=== PATIENT | female | born 1960 | race African-American/Black ===

== ENCOUNTER 2017-05-05 00:52 | Observation (INO) | payer OTHER ==
[2017-05-05 01:25] VITALS: BMI 40.4
[2017-05-05] MEDS ORDERED: FAMOTIDINE 20 MG/50 ML IVPB 20 MG/50 ML MG IVPB ONE ×2 (01:37→02:02)
[2017-05-05] MEDS ORDERED: EPINEPHrine 1:1,000 0.3 MG/0.3 ML SYR IM ONE (01:37)
[2017-05-05] MEDS ORDERED: methylPREDNISolone NA SUCC 125 MG/2 ML VIAL IVPB ONE (01:37)
[2017-05-05] MEDS ORDERED: ALBUTEROL SO4 2.5/IPRATROPIUM 0.5 INH SOL 3 ML VIAL.NEB. NEB ONE ×2 (01:37→01:42)
--- NOTE | 2017-05-05 01:37 | PDOC ---
History of Present Illness - History of Present Illness Initial Comments: 05/05/17 01:48 The patient is a 57 year old female, with a significant past medical history of hypertension, diabetes, who presents to the emergency department with, left- sided tongue swelling. Patient states that she was laying down around 1 hr ago. when she noticed that she had trouble drinking. Upon further inspection she noticed that her tongue felt heavy and swollen on the left side. She denies recent fevers, chills, headache or dizziness. She denies recent nausea, vomit, diarrhea or constipation. She denies recent dysuria, frequency, urgency or hematuria. She denies recent chest pain or shortness of breath. Allergies: lactose intolerant Past surgical history: None reported. Social history: Nonsmoker. Denies EtOH use and recreational drug use. Primary Care Physician: Víctor Flaherty <Hedy Gee - Last Filed: 05/05/17 01:50> <Yenni Abbasi - Last Filed: 05/05/17 02:07> - General Stated Complaint: NUMBNESS,LT SIDE TONGUE Past History <Hdey Gee - Last Filed: 05/05/17 01:50> - Past Medical History Anemia: No Asthma: No Cancer: No Cardiac Disorders: No CVA: No COPD: No DVT: No Dementia: No Diabetes: Yes Dialysis: No GI Disorders: No Disorders: No HTN: Yes Hypercholesterolemia: Yes Kidney Stones: No Liver Disease: No Psychiatric Problems: No Seizures: No Thyroid Disease: No Lung CA: No - Suicide/Smoking/Psychosocial Hx Smoking History: Never smoked Information on smoking cessation initiated: No Hx Alcohol Use: No Drug/Substance Use Hx: No Substance Use Type: None <Yenni Abbasi - Last Filed: 05/05/17 02:07> - Past Medical History Allergies/Adverse Reactions: Allergies Allergy/AdvReac Type Severity Reaction Status Date / Time No Known Allergies Allergy Verified 05/05/17 01:34 Home Medications: Ambulatory Orders Atorvastatin Ca [Lipitor] 20 mg PO HS 05/05/17 Lisinopril [Zestril] 20 mg PO DAILY 05/05/17 Metformin HCl 500 mg PO BID 05/05/17 Review of Systems - Review of Systems Comments:: 05/05/17 01:49 CONSTITUTIONAL: Absent: fever, chills, diaphoresis, generalized weakness, malaise, loss of appetite HEENT: Present: enlarged left-side of tongue. Absent: rhinorrhea, nasal congestion, throat pain, throat swelling, difficulty swallowing, mouth swelling, ear pain, eye pain, visual changes CARDIOVASCULAR: Absent: chest pain, syncope, palpitations, irregular heart rate, lightheadedness , peripheral edema RESPIRATORY: Absent: cough, shortness of breath, dyspnea with exertion, orthopnea, wheezing, stridor, hemoptysis GASTROINTESTINAL: Absent: abdominal pain, abdominal distension, nausea, vomiting, diarrhea, constipation, melena, hematochezia GENITOURINARY: Absent: dysuria, frequency, urgency, hesitancy, hematuria, flank pain, genital pain MUSCULOSKELETAL: Absent: myalgia, arthralgia, joint swelling SKIN: Absent: rash, itching, pallor HEMATOLOGIC/IMMUNOLOGIC: Absent: easy bleeding, easy bruising, lymphadenopathy, frequent infections ENDOCRINE: Absent: unexplained weight gain, unexplained weight loss, heat intolerance, cold intolerance NEUROLOGIC: Absent: headache, focal weakness or paresthesias, dizziness, unsteady gait, seizure, mental status changes, bladder or bowel incontinence PSYCHIATRIC: Absent: anxiety, depression, suicidal or homicidal ideation, hallucinations. <Hedy Gee - Last Filed: 05/05/17 01:50> *Physical Exam - Vital Signs Last Vital Signs Temp Pulse Resp BP Pulse Ox 98.4 F 98 H 18 180/97 100 05/05/17 01:14 05/05/17 01:14 05/05/17 01:14 05/05/17 01:14 05/05/17 01:14 - Physical Exam Comments: 05/05/17 01:49 GENERAL: Well developed, well nourished. Awake and alert. No acute distress. HEENT: Normocephalic, atraumatic. PERRLA, EOMI. No conjunctival pallor. Sclera are non- icteric. Moist mucous membranes. Oropharynx is clear. NECK: Supple. Full ROM. No JVD. Carotid pulses 2+ and symmetric, without bruits. No thyromegaly. No lymphadenopathy. CARDIOVASCULAR: Regular rate and rhythm. No murmurs, rubs, or gallops. Distal pulses are 2+ and symmetric. PULMONARY: No evidence of respiratory distress. Lungs clear to auscultation bilaterally. No wheezing, rales or rhonchi. ABDOMINAL: Soft. Non-tender. Non-distended. No rebound or guarding. No organomegaly. Normoactive bowel sounds. MUSCULOSKELETAL Normal range of motion at all joints. No bony deformities or tenderness. No CVA tenderness. EXTREMITIES: No cyanosis. No clubbing. No edema. No calf tenderness. SKIN: Warm and dry. Normal capillary refill. No rashes. No jaundice. NEUROLOGICAL: Alert, awake, appropriate. No gross focal neuro deficits. PSYCHIATRIC: Cooperative. Good eye contact. Appropriate mood and affect. Intra-Oral exam: Enlarged left-sided tongue, no lip swelling at this time. No uvula deviation or swelling <Hedy Gee - Last Filed: 05/05/17 01:50> - Vital Signs Last Vital Signs Temp Pulse Resp BP Pulse Ox 98.4 F 98 H 18 180/97 100 05/05/17 01:14 05/05/17 01:14 05/05/17 01:14 05/05/17 01:14 05/05/17 01:14 <Yenni Abbasi - Last Filed: 05/05/17 02:07> ED Treatment Course - LABORATORY CBC & Chemistry Diagram: 05/05/17 02:00 05/05/17 02:00 <Yenni Abbasi - Last Filed: 05/05/17 02:07> Medical Decision Making - Medical Decision Making 05/05/17 02:04 57 yo female who started lisinopril 3 weeks ago presents with 1 hour of left tongue swelling -Intraoral exam is negative for uvular edema -no hives,no lip swelling -lungs cta b/l IMP drug reaction/allergy plan IV steroids,benadryl admission for airway watch <Yenni Abbasi - Last Filed: 05/05/17 02:07> *DC/Admit/Observation/Transfer - Attestations Scribe Attestion: 05/05/17 01:49 Documentation prepared by Hedy Gee, acting as medical imaging specialist for Yenni Abbasi MD. <Hedy Gee - Last Filed: 05/05/17 01:50> <Yenni Abbasi - Last Filed: 05/05/17 02:07> - Referrals Referrals: Víctor Flaherty MD [Primary Care Provider] - - Patient Instructions - Post Discharge Activity
[2017-05-05] MEDS ORDERED: methylPREDNISolone NA SUCC 125 MG/2 ML VIAL ONE (01:42)
[2017-05-05] MEDS ORDERED: EPINEPHrine/PF 1 MG/1 ML (1:1,000) AMPULE ONE (01:42)
[2017-05-05 02:04] LABS: BASOPHIL 0.7 % (0-2.0); MCH 26.2 pg (25.7-33.7); MCHC 32.3 g/dl (32.0-36.0); MEAN CELL VOLUME 81.1 fl (80-96); MEAN PLT VOLUME 8.3 fl (7.5-11.1); NEUTROPHILS 56.2 % (42.8-82.8); PLATELET COUNT 232 K/MM3 (134-434); RDW 15.2 % (11.6-15.6); WHITE BLOOD COUNT 4.7 K/mm3 (4.0-10.0)
[2017-05-05 02:24] LABS: INR 1.02 (0.82-1.09); PROTHROMBIN TIME (PATIENT) 11.5 SEC (9.98-11.88)
[2017-05-05 02:35] LABS: ALBUMIN 3.7 g/dl (3.4-5.0); ALK PHOS 58 U/L (45-117); ANION GAP 11 (8-16); BILIRUBIN,TOTAL 0.3 mg/dL (0.2-1.0); CALCIUM 9.2 mg/dL (8.5-10.1); CO2 25 mmol/L (21-32); CREATININE 0.7 mg/dL (0.55-1.02); GLUCOSE,RANDOM 128 mg/dL (74-106); SGOT/AST 15 U/L (15-37); SGPT/ALT 24 U/L (12-78); TOT PROT 7.6 g/dl (6.4-8.2)
[2017-05-05 03:29] LABS: URINE APPEARANCE CLEAR; URINE BILIRUBIN NEGATIVE (NEGATIVE); URINE BLOOD NEGATIVE (NEGATIVE); URINE COLOR COLORLESS; URINE GLUCOSE (UA) NEGATIVE (NEGATIVE); URINE KETONE NEGATIVE (NEGATIVE); URINE NITRITE NEGATIVE (NEGATIVE); URINE PROTEIN NEGATIVE (NEGATIVE); URINE UROBILINOGEN NEGATIVE mg/dL (0.2-1.0)
--- NOTE | 2017-05-05 03:33 | PDOC ---
*Physical Exam - Vital Signs Last Vital Signs Temp Pulse Resp BP Pulse Ox 98.4 F 98 H 18 180/97 100 05/05/17 01:14 05/05/17 01:14 05/05/17 01:14 05/05/17 01:14 05/05/17 01:14 ED Treatment Course - LABORATORY CBC & Chemistry Diagram: 05/05/17 02:00 05/05/17 02:00 - ADDITIONAL ORDERS Additional order review: Laboratory Results 05/05/17 05/05/17 02:00 02:00 PT with INR 11.50 INR 1.02 Sodium 140 Potassium 3.9 Chloride 104 Carbon Dioxide 25 Anion Gap 11 BUN 11 Creatinine 0.7 Creat Clearance w eGFR > 60 Random Glucose 128 H Calcium 9.2 Total Bilirubin 0.3 AST 15 ALT 24 Alkaline Phosphatase 58 Total Protein 7.6 Albumin 3.7 05/05/17 02:00 RBC 4.67 MCV 81.1 MCHC 32.3 RDW 15.2 MPV 8.3 Neutrophils % 56.2 Lymphocytes % 23.8 Monocytes % 16.3 H Eosinophils % 3.0 Basophils % 0.7 - Medications Given in the ED: ED Medications Discontinued Medications Generic Name Dose Route Start Last Admin Trade Name Freq PRN Reason Stop Dose Admin Albuterol/Ipratropium 1 amp 05/05/17 01:37 05/05/17 02:00 Duoneb - NEB 05/05/17 01:38 1 amp ONCE ONE Administration Diphenhydramine HCl 50 mg 05/05/17 01:37 05/05/17 02:00 Benadryl Injection - IVPB 05/05/17 01:38 50 mg ONCE ONE Administration Epinephrine HCl 0.3 mg 05/05/17 01:37 05/05/17 02:07 Epipen 0.3mg - IM 05/05/17 01:38 0.3 mg ONCE ONE Administration Famotidine/Sodium Chloride 20 mg in 50 mls @ 100 mls/hr 05/05/17 01:37 02:01 Pepcid 20 Mg Premixed Ivpb - IVPB 05/05/17 02:06 100 mls/hr ONCE ONE Administration Methylprednisolone Sodium Succinate 125 mg 05/05/17 01:37 05/05/17 02:00 Solu-Medrol - IVPB 05/05/17 01:38 125 mg ONCE ONE Administration *DC/Admit/Observation/Transfer Diagnosis at time of Disposition: Allergic reaction caused by a drug Qualifiers: Encounter type: initial encounter Qualified Code(s): T78.40XA - Allergy, unspecified, initial encounter - Discharge Dispostion Condition at time of disposition: Stable Admit: Yes - Referrals Referrals: Víctor Flaherty MD [Primary Care Provider] - - Patient Instructions - Post Discharge Activity
--- NOTE | 2017-05-05 04:40 | HP ---
CHIEF COMPLAINT: tongue swelling PCP: Reynold HISTORY OF PRESENT ILLNESS: This is a 57 year old female with a past medical history significant for HTN started on lisinopril 3 weeks ago who presented to the ED with left sided tongue swelling x 1.5h. Pt denies difficulty swallowing or trouble breathing. Denies chest pain, palpitations, abdominal pain, N/V/D. ER course was notable for: (1) given epi, benadryl, solumedrol, famotidine, albuterol Recent Travel: pt denies PAST MEDICAL HISTORY: HTN, DM, asthma PAST SURGICAL HISTORY: pt denies Social History: Smoking: pt denies Alcohol: pt denies Drugs: pt denies Family History: mother age 41, murdered father age 83, CVA, HTN, DM, PPM, prostate CA no siblings one son, no medical problems Allergies No Known Allergies Allergy (Verified 05/05/17 01:34) HOME MEDICATIONS: 3 Medication Instructions Recorded Atorvastatin Ca [Lipitor] 20 mg PO HS 05/05/17 Lisinopril [Zestril] 20 mg PO DAILY 05/05/17 Metformin HCl 500 mg PO BID 05/05/17 REVIEW OF SYSTEMS CONSTITUTIONAL: Absent: fever, chills, diaphoresis, generalized weakness, malaise, loss of appetite, weight change HEENT: Present: tongue swelling Absent: rhinorrhea, nasal congestion, throat pain, throat swelling, difficulty swallowing, mouth swelling, ear pain, eye pain, visual changes CARDIOVASCULAR: Absent: chest pain, syncope, palpitations, irregular heart rate, lightheadedness , peripheral edema RESPIRATORY: Absent: cough, shortness of breath, dyspnea with exertion, orthopnea, wheezing, stridor, hemoptysis GASTROINTESTINAL: Absent: abdominal pain, abdominal distension, nausea, vomiting, diarrhea, constipation, melena, hematochezia GENITOURINARY: Absent: dysuria, frequency, urgency, hesitancy, hematuria, flank pain, genital pain MUSCULOSKELETAL: Absent: myalgia, arthralgia, joint swelling, back pain, neck pain SKIN: Absent: rash, itching, pallor HEMATOLOGIC/IMMUNOLOGIC: Absent: easy bleeding, easy bruising, lymphadenopathy, frequent infections ENDOCRINE: Absent: unexplained weight gain, unexplained weight loss, heat intolerance, cold intolerance NEUROLOGIC: Absent: headache, focal weakness or paresthesias, dizziness, unsteady gait, seizure, mental status changes, bladder or bowel incontinence PSYCHIATRIC: Absent: anxiety, depression, suicidal or homicidal ideation, hallucinations. PHYSICAL EXAMINATION Vital Signs - 24 hr 3 05/05/17 01:14 Temperature 98.4 F Pulse Rate 98 H Respiratory 18 Rate Blood Pressure 180/97 O2 Sat by Pulse 100 Oximetry (%) GENERAL: Awake, alert, and fully oriented, in no acute distress. HEAD: Normal with no signs of trauma. EYES: Pupils equal, round and reactive to light, extraocular movements intact, sclera anicteric, conjunctiva clear. No lid lag. EARS, NOSE, THROAT: Ears normal, nares patent, oropharynx clear without exudates. Moist mucous membranes. left half of tongue with swelling, no swelling of uvula NECK: Normal range of motion, supple without lymphadenopathy, JVD, or masses. LUNGS: Breath sounds equal, clear to auscultation bilaterally. No wheezes, and no crackles. No accessory muscle use. HEART: Regular rate and rhythm, normal S1 and S2 without murmur, rub or gallop. ABDOMEN: Obese, Soft, nontender, not distended, normoactive bowel sounds, no guarding, no rebound, no masses. No hepatomegaly or splenomegaly. MUSCULOSKELETAL: Normal range of motion at all joints. No bony deformities or tenderness. No CVA tenderness. UPPER EXTREMITIES: 2+ pulses, warm, well-perfused. No cyanosis. No clubbing. No peripheral edema. LOWER EXTREMITIES: 2+ pulses, warm, well-perfused. No calf tenderness. No peripheral edema. NEUROLOGICAL: Cranial nerves II-XII intact. Normal speech. Normal gait. PSYCHIATRIC: Cooperative. Good eye contact. Appropriate mood and affect. SKIN: Warm, dry, normal turgor, no rashes or lesions noted, normal capillary refill. Laboratory Results - last 24 hr 3 05/05/17 05/05/17 05/05/17 02:00 02:00 02:00 WBC 4.7 RBC 4.67 Hgb 12.2 Hct 37.9 MCV 81.1 MCH 26.2 MCHC 32.3 RDW 15.2 Plt Count 232 MPV 8.3 Neutrophils % 56.2 Lymphocytes % 23.8 Monocytes % 16.3 H Eosinophils % 3.0 Basophils % 0.7 PT with INR 11.50 INR 1.02 Sodium 140 Potassium 3.9 Chloride 104 Carbon Dioxide 25 Anion Gap 11 BUN 11 Creatinine 0.7 Creat Clearance w eGFR > 60 Random Glucose 128 H Calcium 9.2 Total Bilirubin 0.3 AST 15 ALT 24 Alkaline Phosphatase 58 Total Protein 7.6 Albumin 3.7 Urine Color Urine Appearance Urine pH Ur Specific [place] Urine Protein Urine Glucose (UA) Urine Ketones Urine Blood Urine Nitrite Urine Bilirubin Urine Urobilinogen 3 Urine Color Colorless 05/05/17 03:19 Urine Appearance Clear 05/05/17 03:19 Urine pH 5.0 (5.0-8.0) 05/05/17 03:19 Ur Specific [place] 1.001 (1.001-1.035) 05/05/17 03:19 Urine Protein Negative (NEGATIVE) 05/05/17 03:19 Urine Glucose (UA) Negative (NEGATIVE) 05/05/17 03:19 Urine Ketones Negative (NEGATIVE) 05/05/17 03:19 Urine Blood Negative (NEGATIVE) 05/05/17 03:19 Urine Nitrite Negative (NEGATIVE) 05/05/17 03:19 Urine Bilirubin Negative (NEGATIVE) 05/05/17 03:19 ECG NSR, vent rate 90, QTC 462 moderate voltage criteria for LVH no acute ST/T changes ASSESSMENT/PLAN: 57yF with PMH HTN, DM, asthma presented to ED with L sided tongue swelling. angioedema - likely due to SHADE-i - given benadryl, solumedrol, epinephrine and famotidine in ED - type and cross ordered in case pt needs FFP - monitor closely HTN - BP elevated upon arrival - will need alternate anti-HTN med, consider norvasc DM - hold metformin while inpatient - BGM AC/HS with novolog sliding scale asthma - albuterol neb prn, pt states she typically uses her inhaler less than once/ month DVT PPX - deferred as anticipated LOS <48h FEN - tolerating po fluids - BMP in am - low sodium/diabetic diet as tolerated Dispo: Pt currently requires further observation for management of her emergent condition. Visit type - Emergency Visit Emergency Visit: Yes ED Registration Date: 05/05/17 Care time: The patient presented to the Emergency Department on the above date and was hospitalized for further evaluation of their emergent condition. - New Patient This patient is new to me today: Yes Date on this admission: 05/05/17 - Critical Care Critical Care patient: No
--- NOTE | 2017-05-05 10:21 | EKG ---
Test Reason : Blood Pressure : / mmHG Vent. Rate : 090 BPM Atrial Rate : 090 BPM P-R Int : 146 ms QRS Dur : 078 ms QT Int : 378 ms P-R-T Axes : 036 -10 002 degrees QTc Int : 462 ms NORMAL SINUS RHYTHM MODERATE VOLTAGE CRITERIA FOR LVH, MAY BE NORMAL VARIANT BORDERLINE ECG NO PREVIOUS ECGS AVAILABLE Confirmed by CHAYA ESTRADA MD ([id number]) on 05/05/2017 10:20:45 AM Referred By: Confirmed By:CHAYA ESTRADA MD
[2017-05-05] MEDS ORDERED: amLODIPine BESYLATE 5 MG TABLET (FP) ONE (11:56)
[2017-05-05] MEDS: amLODIPine BESYLATE 5 MG TABLET (FP) PO SCH (11:58)
[2017-05-05 12:04] LABS: URINE LEUK ESTERASE Negative (NEGATIVE)
[2017-05-05] MEDS: INSULIN SLIDING SCALE (NOVOLOG) 1 VIAL SQ SCH ×2 (12:29→18:25)
[2017-05-05] MEDS ORDERED: INSULIN (NOVOLOG) ASPART 100 UNITS/ML 10ML VIAL ONE (12:39)
[2017-05-05] MEDS ORDERED: predniSONE 20 MG TABLET (UD) PO ONE (19:05)
--- NOTE | 2017-05-05 20:15 | CON.ENT ---
Consult Consult Specialty:: ENT Referred by:: Nereida Zarate NP Reason for Consultation:: angioedema - History of Present Illness Chief Complaint: tongue swelling History of Present Illness: 57 yo F with sudden onset tongue swelling, noted last night while at home, no trauma, no unusual foods noted tongue swelling speech "slurred:, saw tongue swelling in mriror and presented to ER. on arrival dx angioedema, rx Benadryl, epi, steroids. hx HTN, DM, asthma had SHADE inhibitor therapy - dc'd BP very elevated, admitted for further evaluation and management since treatment early this morning pt reports significant improvement, with resolution of tongue sweling she davis s been eating and drinking normally, full diet Bp remains elevated. no shortness of breathe,swallowing well. reports known history of allergies, had skin testing by MD at [facility], last visit 2 yrs ago - History Source History Provided By: Patient, Medical Record Limitations to Obtaining History: No Limitations - Past Medical History Cardio/Vascular: Yes: HTN Pulmonary: Yes: Asthma Endocrine: Yes: Diabetes Mellitus - Alcohol/Substance Use Hx Alcohol Use: No - Smoking History Smoking history: Never smoked Home Medications - Allergies Allergies/Adverse Reactions: Allergies Allergy/AdvReac Type Severity Reaction Status Date / Time SHADE Inhibitors Allergy Severe Swelling Verified 05/05/17 11:38 ARB-Angiotensin Receptor Allergy Severe Difficulty Verified 05/05/17 11:38 Antagonist Breathing - Home Medications Home Medications: Ambulatory Orders Amlodipine Besylate [Norvasc -] 5 mg PO DAILY #30 tablet 05/05/17 Atorvastatin Ca [Lipitor] 20 mg PO HS 05/05/17 Metformin HCl 500 mg PO BID 05/05/17 Physical Exam-ENT Vital Signs: Vital Signs Temperature 98.7 F 05/05/17 17:00 Pulse Rate 94 H 05/05/17 17:00 Respiratory Rate 18 05/05/17 17:00 Blood Pressure 150/90 05/05/17 17:00 O2 Sat by Pulse Oximetry (%) 96 05/05/17 13:20 Constitutional: Yes: No Distress, Calm, Obese Head: Yes: WNL Face: Yes: WNL Eyes: Yes: WNL Nose: Yes: WNL Nasal Passage: Yes: WNL Oral/Pharynx: Yes: WNL, Other (tongue normal, no swelling, symmetric, fully mobile, oropharyngeal airway normal, uvula no edema, floor of mouth: minimal focal edema left anterior around salivary duct papilla) Outer Ear: Yes: WNL Neck: Yes: WNL Respiratory: Yes: WNL Imaging - Results Chest X-ray: Report Reviewed (large heart) Problem List - Problems (1) Angioedema Assessment/Plan: acute angioedema involving tongue and oral cavity, essentiality resolved over day after ER treatment SHADE inhibitor suspected, discontinued pt continues to have elevated blood pressure, change of antihypertensive in progress. tolerating full diet, airway patent and WNL Recommend: full diet normal airway, ok to discharge home from ENT perspective But needs hypertension control prior to discharge as per Medicine/Hospitalists outpatient follow-up recommended Code(s): T78.3XXA - ANGIONEUROTIC EDEMA, INITIAL ENCOUNTER Qualifiers: Encounter type: initial encounter Qualified Code(s): T78.3XXA - Angioneurotic edema, initial encounter (2) Allergic rhinitis Assessment/Plan: incidental dx of allergic rhinitis numerous inhalant allergens outpatient follow-up recommended Thank you for consultation Shalom Wilkerson MD FACS Code(s): J30.9 - ALLERGIC RHINITIS, UNSPECIFIED Qualifiers: Chronicity: chronic Allergic rhinitis trigger: fungal spores Allergic rhinitis seasonality: unspecified seasonality Qualified Code(s): J30.89 - Other allergic rhinitis
[2017-05-05] MEDS ORDERED: diphenhydrAMINE HCL 25 MG CAPSULE (FP) PO SCH (22:00)
[2017-05-05] MEDS ORDERED: ATORVASTATIN CA 20 MG TABLET (FP) PO SCH (22:00)
[2017-05-05] MEDS ORDERED: INSULIN SLIDING SCALE (NOVOLOG) 1 VIAL SQ SCH (22:00)
[2017-05-06] MEDS: INSULIN SLIDING SCALE (NOVOLOG) 1 VIAL SQ SCH (06:46)
[2017-05-06 07:43] LABS: BASOPHIL 0.2 % (0-2.0); MEAN CELL VOLUME 81.3 fl (80-96); MEAN PLT VOLUME 8.3 fl (7.5-11.1); NEUTROPHILS 85.8 % (42.8-82.8); PLATELET COUNT 258 K/MM3 (134-434); RDW 15.1 % (11.6-15.6); WHITE BLOOD COUNT 10.3 K/mm3 (4.0-10.0)
[2017-05-06 07:52] LABS: ANION GAP 7 (8-16); CALCIUM 9.1 mg/dL (8.5-10.1); CO2 25 mmol/L (21-32); CREATININE 0.7 mg/dL (0.55-1.02); GLUCOSE,RANDOM 179 mg/dL (74-106); MAGNESIUM 2.2 mg/dL (1.8-2.4); PHOSPHOROUS 3.3 mg/dL (2.5-4.9)
[2017-05-06] MEDS ORDERED: INSULIN (NOVOLOG) ASPART 100 UNITS/ML 10ML VIAL ONE (08:02)
[2017-05-06] MEDS ORDERED: PT OWN MED DRAWER 7, Y5N ONE (08:02)
--- NOTE | 2017-05-06 08:39 | DS ---
Physical Exam: SUBJECTIVE: Patient seen and examined. She has no issues, she feels well, no difficulty or catching in her throat. ready to go home OBJECTIVE: Vital Signs Period Temp Pulse Resp BP Sys/Wiley Pulse Ox Last 24 Hr 97.9 F-98.7 F 87-98 18-20 141-150/85-97 96-99 PE Neuro: alert, awake, cn 2-12intact HEENT: no swelling, no swallowing issues Pulm: CTAB CV: s1 s2 rrr no mrg Abd: s nt nd + bs Ext: warm, no le edema Laboratory Results - last 24 hr 05/05/17 05/06/17 05/06/17 21:13 06:28 06:30 WBC 10.3 H D RBC 4.75 Hgb 12.4 Hct 38.6 MCV 81.3 MCH 26.0 MCHC 32.0 RDW 15.1 Plt Count 258 MPV 8.3 Neutrophils % 85.8 H D Lymphocytes % 8.0 D Monocytes % 6.0 Eosinophils % 0.0 D Basophils % 0.2 Sodium Potassium Chloride Carbon Dioxide Anion Gap BUN Creatinine POC Glucometer 137 163 Random Glucose Calcium Phosphorus Magnesium Blood Type 05/06/17 06:30 WBC RBC Hgb Hct MCV MCH MCHC RDW Plt Count MPV Neutrophils % Lymphocytes % Monocytes % Eosinophils % Basophils % Sodium 138 Potassium 4.4 Chloride 106 Carbon Dioxide 25 Anion Gap 7 L BUN 16 D Creatinine 0.7 POC Glucometer Random Glucose 179 H D Calcium 9.1 Phosphorus 3.3 Magnesium 2.2 Blood Type HOSPITAL COURSE: Date of Admission:05/05/17 Date of Discharge: 05/06/17 Minutes to complete discharge: 37 Discharge Summary Reason For Visit: ALLERGIC RXN,POSSIBLE AIRWAY COMPROMISE Current Active Problems Allergic reaction caused by a drug (Acute) Allergic rhinitis (Acute) Angioedema (Acute) Hospital Course: Initial Hospital Course: Briefly, this 57 year old female with a past medical history significant for HTN started on lisinopril 3 weeks ago presented to the ED with left sided tongue swelling x 1.5h. Subsequent Hospital Course/Progress Note/DC Summary: Plan: 1. Acute Angioedema - Due to ACI i - Stop and allergy noted in medical record - ENT eval with normal airway - Home w prednisone 40mg total 5 days - Epi pen PRN 2. HTN - Changed meds to norvac 5mg and HCTZ 12.5mg - PCP office follow up, pt aware and agrees 3. DM II - Metformin Dispo: - Home with above meds and plan - PT aware and agrees to above plan Condition: Stable - Instructions Diet, Activity, Other Instructions: Please return to the ED for any new, persistent, or worsening symptoms. Follow up with your PCP in 1 week for BP management Take new BP medications as directed Take 4 more days of prednisone daily Do not take any medications in the category of SHADE INHIBITORS or ARBs you have a severe allergy called angioedema. Keep this part of your medical record and tell your outpatient doctors. Referrals: Víctor Flaherty MD [Primary Care Provider] - Disposition: HOME - Home Medications Comprehensive Discharge Medication List: Ambulatory Orders Amlodipine Besylate [Norvasc -] 5 mg PO DAILY #30 tablet 05/05/17 Atorvastatin Ca [Lipitor] 20 mg PO HS 05/05/17 Metformin HCl 500 mg PO BID 05/05/17 Epinephrine (Epi-Pen 0.3MG) [Epipen 0.3MG -] 0.3 mg IM ASDIR #2 pens 05/06/17 Hydrochlorothiazide [Hctz -] 12.5 mg PO DAILY #30 cap 05/06/17 Prednisone [Deltasone -] 40 mg PO DAILY #8 tablet 05/06/17 This patient is new to me today: Yes Date on this admission: 05/06/17 Emergency Visit: Yes ED Registration Date: 05/05/17 Care time: The patient presented to the Emergency Department on the above date and was hospitalized for further evaluation of their emergent condition. Critical Care patient: No - Discharge Referral Referred to [facility] No
[2017-05-06] MEDS ORDERED: HYDROCHLOROTHIAZIDE 12.5 MG CAPSULE (FP) PO ONE (08:45)
[2017-05-06] MEDS: amLODIPine BESYLATE 5 MG TABLET (FP) PO SCH (08:52)
[2017-05-06 09:08] VITALS: BP 149/84; PULSE 95; TEMP 98.5
== END 2017-05-06 09:09 | disposition home or self-care (01) ==
LOC: JER 00:52 → JERBED 03:33 → UNDOADMOB 04:32 → J5S 15:10
PROVIDERS: ADMIT Internal Medicine; ATTEND Nurse Practitioner Acute Care
PROC: 3E033GC Introduction of Other Therapeutic Substance into Peripheral Vein, Percutaneous Approach (ICD-10-PCS; principal; 2017-05-05)
PROC: 3E033GC Introduction of Other Therapeutic Substance into Peripheral Vein, Percutaneous Approach (ICD-10-PCS; 2017-05-05)
PROC: 3E0333Z Introduction of Anti-inflammatory into Peripheral Vein, Percutaneous Approach (ICD-10-PCS; 2017-05-05)
PROC: 3E0F7GC Introduction of Other Therapeutic Substance into Respiratory Tract, Via Natural or Artificial Opening (ICD-10-PCS; 2017-05-05)
PROC: 3E0F7GC Introduction of Other Therapeutic Substance into Respiratory Tract, Via Natural or Artificial Opening (ICD-10-PCS; 2017-05-05)
PROC: 3E013VG Introduction of Insulin into Subcutaneous Tissue, Percutaneous Approach (ICD-10-PCS; 2017-05-05)
PROC: 3E023GC Introduction of Other Therapeutic Substance into Muscle, Percutaneous Approach (ICD-10-PCS; 2017-05-05)
DX: T78.3XXA Angioneurotic edema, initial encounter (principal); T46.4X5A Adverse effect of angiotensin-converting-enzyme inhibitors, initial encounter; Y92.038 Other place in apartment as the place of occurrence of the external cause; I10 Essential (primary) hypertension; E11.9 Type 2 diabetes mellitus without complications; Z79.84 Long term (current) use of oral hypoglycemic drugs; J45.909 Unspecified asthma, uncomplicated
CPT/HCPCS: 36415; 71010-TC; 80048; 80053; 81003; 83735; 84100; 85025; 85610; 86850; 86900; 86901; 93005; 93010; 99285-25; G0378

== ENCOUNTER 2022-04-27 07:45 | Day surgery (SDC) | payer OTHER ==
[2022-04-21 14:04] VITALS: BMI 40.4
[2022-04-27 12:58] VITALS: TEMP 98
[2022-04-27 13:01] VITALS: BP 107/58; PULSE 74; RESP 17
== END 2022-04-27 10:00 | disposition home or self-care (01) ==
LOC: FASU-ENDO 07:45
PROVIDERS: ATTEND Internal Medicine Gastroenterology
PROC: 0DJD8ZZ Inspection of Lower Intestinal Tract, Via Natural or Artificial Opening Endoscopic (ICD-10-PCS; principal; 2022-04-27 08:56)
DX: Z12.11 Encounter for screening for malignant neoplasm of colon (principal); Z86.010 Personal history of colon polyps
CPT/HCPCS: 82962

== ENCOUNTER 2022-07-27 13:24 | Emergency (ER) | payer OTHER ==
[2022-07-27 13:50] VITALS: BP 166/73; PULSE 93; RESP 20; TEMP 97.9; BMI 39.8
[2022-07-27] MEDS ORDERED: ACETAMINOPHEN 325 MG TABLET (FP) PO ONE (14:44)
[2022-07-27] MEDS ORDERED: ACETAMINOPHEN 325 MG TABLET (FP) ONE (15:19)
== END 2022-07-27 15:29 | disposition home or self-care (01) ==
LOC: JER 13:24
DX: I10 Essential (primary) hypertension (principal)
CPT/HCPCS: 99283-25